=== PATIENT | male | born 1970 | race Caucasian/White ===

== ENCOUNTER 2024-07-06 13:29 | Outpatient (AMB) | payer MEDICAID, SELFPAY ==
--- NOTE | 2024-07-06 13:43 | ORTHONT_ITS ---
Vital signs 07/06/24 13:46 Height 1.7 m Height Method Stated Weight 101.264 kg Weight Measurement Method Standing Scale BMI 34.9 BP 134/93 H Blood Pressure Source Automatic Cuff Blood Pressure Location Left Upper Arm Position Sitting Respiration 19 Pulse 85 Pulse Source Monitor Temp 97.7 F Temp Source Temporal Artery Scan Pulse Oximetry (%) 97 Oxygen Delivery Method Room Air Med/Allergies Allergies & Medications Allergies No Known Allergies Allergy (Verified 07/06/24 13:45) Medication Reconciliation No Known Home Medications 07/06/24 [History Confirmed 07/06/24] Exam Exam Patient is in no acute distress and is cooperative with the examination today. Breathing is nonlabored. In no respiratory distress. Patient has no paraspinal tenderness. Spinal deformity cannot be appreciated. The gait of the patient is nonantalgic Bilateral extremities were evaluated and demonstrates sensation intact to light touch. Palpable pedal pulses are present. No significant edema is present. Bilateral knees were examined and the patient has full strength and range of motion.. The right hip was examined. Patient was able to flex to 90 degrees, adduct to 30 degrees, abduct to 40 degrees, internally rotate to 20 degrees, and externally rotate to 20 degrees. Patient has a negative logroll. Stinchfield is negative. The patient is nontender diffusely to touch. The left hip was examined. Patient was able to flex to 90 degrees, adduct to 30 degrees, abduct to 40 degrees, internally rotate to 20 degrees, and externally rotate to 20 degrees. Patient has a negative logroll. The stinchfield is negative. [facility]. This demonstrates mild joint space narrowing on the right with osteophytes. Assessment and Plan Problem List (1) Ankylosing spondylitis: Status: Acute Plan: Patient is a 53-year-old male with ankylosing spondylitis and back and buttocks pain. I discussed with him that his hip x-rays only demonstrate mild to moderate arthritis. He also has a benign clinical examination with no pain rotation. I discussed with him that he may want to see a learning and development analyst first before seeing spondylitis consider rheumatology medications. His hips look great and he does not benefit from any surgical procedure. I am hesitant to give him anti-inflammatories given his ckd. 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 Level 4 ([id number]) MA Intake Visit Data Collection New Patient or Established: New Patient (never been to [facility]) Reason for Visit:: RIGHT HIP PAIN Seen by Clinical Staff ONLY (RN/MA): No Reservoir Engineering Consultant Required: No PCP or OBGYN visit in last 3 months: Yes Hx Now: No Do You Feel Safe at Home: Yes Authorities Contacted: N/A Questionairres Past Medical History Past Medical History Have you ever been diagnosed with any of the following: Subjective Visit Visit for: new patient and hip (RIGHT) Immunization / Flu Flu Vaccine in the Last 12 Months: Yes Flu Vaccine Exclusion Criteria: Already Received History of Present Illness Chief complaint: Back pain Lawrence is a 53-year-old male with listed spondylitis and back pain. He reports no pain in the groin. The pain occasionally shoots all the way down his leg and there is a numbness tingling component. He reports the buttocks and back is the main source of pain. He can no longer take anti-inflammatories such as meloxicam as of his kidneys. 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
[2024-07-06 13:46] VITALS: BP 134/93; PULSE 85; RESP 19; TEMP 36.5; O2SAT 97; BMI 34.9
== END 2024-07-06 14:09 | disposition home or self-care (01) ==
PROVIDERS: Supervising Provider Orthopaedic Surgery Adult Reconstructive Orthopaedic Surgery; Visit Provider Orthopaedic Surgery Adult Reconstructive Orthopaedic Surgery
DX: M45.9 Ankylosing spondylitis of unspecified sites in spine (principal); M54.9 Dorsalgia, unspecified; M16.9 Osteoarthritis of hip, unspecified; N18.9 Chronic kidney disease, unspecified
CPT/HCPCS: 99204; G0463